=== PATIENT | male | born 1955 | race Caucasian/White ===

== ENCOUNTER 2020-12-18 11:53 | Emergency (ER) | payer OTHER ==
[~2020-12-18] VITALS: Ht 182.9 cm; Wt 90.7 kg
[2020-12-18] MEDS ORDERED: LIPITOR 10 MG10 M1 PO (12:09)
[2020-12-18] MEDS ORDERED: LISINOPRIL10 MG PO (12:10)
[2020-12-18] MEDS ORDERED: LEVO-T25 MCG PO (12:10)
[2020-12-18] MEDS ORDERED: OMEPRAZOLE 20 M20 M1 PO (12:10)
[2020-12-18] MEDS ORDERED: HYTRIN 1 MG CAP1 MG PO (12:10)
[2020-12-18 12:25] LABS: ABSOLUTE BASOPHILS 0.1 thou/uL (0.0-0.2); ABSOLUTE EOSINOPHILS 0.1 thou/uL (0.0-0.7); ABSOLUTE LYMPHOCYTES 1.6 thou/uL (0.8-5.3); ABSOLUTE MONOCYTES 0.8 thou/uL (0.0-1.2); ABSOLUTE NEUTROPHILS 7.8 thou/uL (1.6-8.1); BASOPHILS 0.5 %; EOSINOPHILS 1.2 %; HEMATOCRIT 42.6 % (42.0-52.0); HEMOGLOBIN 14.6 gm/dL (14.0-18.0); LYMPHOCYTES 15.2 %; MCHC 34.2 g/dL (28.0-37.0); MCV 90.8 fL (80.0-100.0); MONOCYTES 7.8 %; MPV 8.4 fl. (7.2-11.1); NUCLEATED RBCS 0 /100WBC; PLATELET COUNT* 169 thou/uL (150-400); POLYS 75.3 %; RBC 4.69 mil/uL (4.50-6.00); RDW-CV 13.6 % (10.5-14.5); WBC 10.4 thou/uL (4.0-11.0)
[2020-12-18 12:35] LABS: CALCIUM 8.5 mg/dL (8.5-10.1); POTASSIUM 3.9 mmol/L (3.5-5.1)
[2020-12-18 12:46] LABS: ALBUMIN 3.8 g/dL (3.4-5.0); TOTAL BILIRUBIN 0.8 mg/dL (<0.1-1.0); TOTAL PROTEIN 7.2 g/dL (6.4-8.2)
[2020-12-18 12:47] LABS: APTT 26.2 Seconds (25.0-31.3); INR 1.1; PROTIME 11.6 Seconds (9.20-11.50)
[2020-12-18 13:18] VITALS: BP 137/83
--- NOTE | 2020-12-18 17:31 | EKG ---
[place] [address] ELECTROCARDIOGRAM REPORT Name: RAHUL BAY Room: [facility]#: [id number] Admission: 12/18/20 Attend Phys: Discharge: 12/18/20 Date of : 55 Date of Service: 12/18/20 1208 Report #: [id number] THIS REPORT FOR: //name// [facility] ED Test Date: 2020-12-18 Test Time: 12:08:12 Pat Name: RAHUL BAY Department: Room: Gender: Nursing Clinical Director: MISTI : 1955 Requested By: Clay Rincon Order Number: [id number] MD: Preet Serrano Measurements Intervals [place] Rate: 82 P: 17 MT: 189 QRS: -7 QRSD: 92 T: -7 QT: 376 QTc: 439 Interpretive Statements Sinus rhythm Borderline T abnormalities, inferior leads No previous ECG available for comparison Electronically Signed On 12-18-2020 17:31:38 PCTS by Preet Serrano [email or web address] <ELECTRONICALLY SIGNED> By: Preet Serrano MD, [facility] 12/18/20 1731 1208 120 Preet Serrano MD, FAC /EPI
== END 2020-12-18 13:20 | disposition home or self-care (01) ==
LOC: M.ERS 11:53
PROVIDERS: Family Medicine
DX: R19.7 Diarrhea, unspecified (principal); R11.2 Nausea with vomiting, unspecified; R07.89 Other chest pain; R25.2 Cramp and spasm; E78.5 Hyperlipidemia, unspecified; I10 Essential (primary) hypertension; K21.9 Gastro-esophageal reflux disease without esophagitis; E03.9 Hypothyroidism, unspecified; Z20.822 Contact with and (suspected) exposure to COVID-19; Z79.899 Other long term (current) drug therapy